=== PATIENT | male | born 1980 | race African-American/Black ===

== ENCOUNTER 2021-02-16 20:20 | Inpatient (IN) | payer MEDICARE, OTHER ==
[~2021-02-16] VITALS: Ht 162.6 cm; Wt 57.8 kg
[~2021-02-16 20:20] MED LIST: AMLO-257 PO; ATOR40TA71 PO; BUME2TAB5 PO; CARV12.530 PO; CARV25TA32 PO; CHOL500013 PO; CHOL500045 PO; CLON0.1T PO; CLON0.2T2 PO; ESCI20TA37 PO; FURO20TA4 PO; GABA-1181 PO; GLIP5TAB11 PO; HYDR-4174 PO; LINA5TAB PO; LISI-893 PO; LORA-1000 PO; METO-296 PO; METO5TAB7 PO; OMEP20CA12 PO; SUCR500T PO; TAMS-13 PO; TICA90TA PO
[2021-02-16] MEDS ORDERED: CALC-1038 PO (20:36)
[2021-02-16 20:45] LABS: GLUCOSE,POINT OF CARE 133 MG/DL (70-110)
[2021-02-16] MEDS ORDERED: ASPIRIN 81 MG CHEWABLE TABLET PO ONE ×2 (21:15→23:00)
[2021-02-16 21:21] LABS: BASOPHILS % (AUTO) 1.2 % (0.0-2.0); EOSINOPHILS % (AUTO) 2.2 % (1.0-6.0); HEMATOCRIT 33.8 % (41-53); HEMOGLOBIN 10.9 g/dL (13.5-17.5); LYMPHOCYTES # (AUTO) 0.9 K/uL (1.0-4.8); LYMPHOCYTES % (AUTO) 8.7 % (22.0-44.0); MEAN CORPUSCULAR HEMOGLOBIN 30.2 pg (26.0-34.0); MEAN CORPUSCULAR HGB CONC 32.1 G/dL (31.0-37.0); MEAN CORPUSCULAR VOLUME 94 fL (80-100); MONOCYTES # (AUTO) 0.8 K/uL (0.1-1.0); MONOCYTES % (AUTO) 7.6 % (2.0-9.0); NEUTROPHILS # (AUTO) 8.5 K/uL (1.8-7.7); NEUTROPHILS % (AUTO) 80.3 % (40.0-70.0); PLATELET COUNT (AUTO) 275 K/uL (150-450); RED CELL DISTRIBUTION WIDTH 18.8 % (11.5-14.5)
[2021-02-16 21:36] LABS: COVID AG,FIA SOURCE NASOPHARYNGEAL
[2021-02-16 22:32] LABS: INR 1.1 (0.9-1.1); PROTHROMBIN TIME 11.9 SEC (9.4-11.6)
[2021-02-16 22:37] LABS: ALBUMIN 3.1 g/dL (3.4-5.0); BILIRUBIN,TOTAL 0.5 mg/dL (0.1-1.0); CALCIUM, TOTAL 7.7 mg/dL (8.8-10.5); CREATININE 4.81 mg/dL (0.60-1.30); POTASSIUM 3.9 mmol/L (3.5-5.1); TOTAL PROTEIN, SERUM 8.3 g/dL (6.4-8.2)
[2021-02-16] MEDS ORDERED: HEPARIN SODIUM,PORCINE 5,000 UNITS/ML VIAL IVP ONE (23:00)
[2021-02-16] MEDS ORDERED: HEPARIN SODIUM 25000 UNITS/D5W 250 ML IV PRN (23:00)
[2021-02-16] MEDS: CARVEDILOL 3.125 MG TABLET PO SCH ×2 (23:00→23:23)
[2021-02-16] MEDS ORDERED: ONDANSETRON HCL 4 MG/2 ML VIAL IVP PRN (23:00)
[2021-02-16] MEDS ORDERED: ACETAMINOPHEN 325 MG TABLET PO PRN (23:00)
[2021-02-16] MEDS ORDERED: HEPARIN SODIUM,PORCINE 5,000 UNITS/ML VIAL IVP PRN ×2 (23:00)
[2021-02-16] MEDS ORDERED: MORPHINE SULFATE 2 MG/ML SYRINGE IVP ONE (23:30)
[2021-02-17] VITALS (10 sets, daily range): BP systolic 118–163; BP diastolic 66–94
[2021-02-17] MEDS ORDERED: LORA-1000 PO (04:38)
[2021-02-17] MEDS ORDERED: INSLAN SQ (04:41)
[2021-02-17] MEDS ORDERED: INSU100V SQ (04:45)
[2021-02-17] MEDS ORDERED: HEPARIN SODIUM 25000 UNITS/D5W 250 ML IV PRN (05:30)
[2021-02-17] MEDS ORDERED: HEPARIN SODIUM,PORCINE 5,000 UNITS/ML VIAL IVP ONE (05:30)
[2021-02-17] MEDS ORDERED: HEPARIN SODIUM,PORCINE 5,000 UNITS/ML VIAL IVP PRN ×2 (05:30)
[2021-02-17] MEDS ORDERED: MORPHINE SULFATE 2 MG/ML SYRINGE IVP PRN (08:15)
[2021-02-17] MEDS: AmLODIPine BESYLATE 5 MG TABLET PO SCH (08:24)
[2021-02-17] MEDS: ASPIRIN 81 MG CHEWABLE TABLET PO SCH (08:24)
[2021-02-17] MEDS: CARVEDILOL 3.125 MG TABLET PO SCH (08:24)
[2021-02-17] MEDS: OMEPRAZOLE 20 MG CAPSULE PO SCH ×2 (08:24→21:41)
[2021-02-17] MEDS: ATORVASTATIN CALCIUM 40 MG TABLET PO SCH (08:24)
[2021-02-17 08:39] LABS: INR 1.1 (0.9-1.1)
[2021-02-17 08:55] LABS: BASOPHILS % (AUTO) 1.3 % (0.0-2.0); EOSINOPHILS % (AUTO) 3.3 % (1.0-6.0); LYMPHOCYTES # (AUTO) 0.9 K/uL (1.0-4.8); LYMPHOCYTES % (AUTO) 13.1 % (22.0-44.0); MEAN CORPUSCULAR HGB CONC 31.3 G/dL (31.0-37.0); MEAN CORPUSCULAR VOLUME 96 fL (80-100); MONOCYTES # (AUTO) 0.5 K/uL (0.1-1.0); MONOCYTES % (AUTO) 6.5 % (2.0-9.0); NEUTROPHILS # (AUTO) 5.4 K/uL (1.8-7.7); NEUTROPHILS % (AUTO) 75.8 % (40.0-70.0); PLATELET COUNT (AUTO) 204 K/uL (150-450); RED BLOOD CELL COUNT(AUTO) 3.66 MIL/uL (4.50-5.90); RED CELL DISTRIBUTION WIDTH 18.7 % (11.5-14.5)
[2021-02-17] MEDS ORDERED: TICAGRELOR 60 MG TABLET PO SCH (09:00)
[2021-02-17] MEDS ORDERED: DEXTROSE 50%-WATER 25 GM/50 ML SYRINGE IVP PRN (09:45)
[2021-02-17] MEDS ORDERED: INSULIN LISPRO 100 UNITS/ML SQ PRN (09:45)
[2021-02-17] MEDS ORDERED: NITROGLYCERIN 0.4 MG SUBLINGUAL TABLET #25 SL ONE (14:00)
[2021-02-17] MEDS ORDERED: BUMETANIDE 0.25 MG/ML 4 ML VIAL IVP ONE (15:00)
[2021-02-17] MEDS ORDERED: FUROSEMIDE 40 MG/4 ML VIAL IVP ONE (15:00)
[2021-02-17] MEDS ORDERED: METOPROLOL TARTRATE 5 MG/5 ML VIAL IVP ONE ×3 (15:00→20:00)
[2021-02-17] MEDS: CHOLECALCIFEROL (VIT D3) 5,000 [125 MCG] UNITS CAPSULE PO SCH (16:53)
[2021-02-17] MEDS: ESCITALOPRAM OXALATE 20 MG TABLET PO SCH (16:53)
[2021-02-17] MEDS: CALCIUM CARBONATE 500 MG TABLET PO SCH (16:53)
[2021-02-17] MEDS ORDERED: LIDOCAINE 1% 10 ML VIAL ID PRN (18:45)
[2021-02-17] MEDS ORDERED: NITROGLYCERIN 400 MCG/SUBLINGUAL SPRAY 4.9 GM BOTTLE SL PRN (18:45)
[2021-02-17] MEDS ORDERED: HYDROCODONE/ACETAMINOPHEN 5-325 MG TABLET PO PRN (19:00)
[2021-02-17] MEDS ORDERED: NITROGLYCERIN 0.4 MG SUBLINGUAL TABLET #25 SL STA (20:30)
[2021-02-17] MEDS: TICAGRELOR 90 MG TABLET PO SCH (21:41)
[2021-02-17] MEDS: CARVEDILOL 12.5 MG TABLET PO SCH (21:42)
[2021-02-17 22:03] LABS: GLUCOMETER DEV NAME(LOC) 5S.1; GLUCOSE,POINT OF CARE 138 MG/DL (70-110)
[2021-02-18 01:28] LABS: GLUCOMETER DEV NAME(LOC) 5N.1C; GLUCOSE,POINT OF CARE 88 MG/DL (70-110)
[2021-02-18 04:15] VITALS: BP 125/75
[2021-02-18 07:11] VITALS: BP 117/77
[2021-02-18] MEDS ORDERED: LANTHANUM CARBONATE 500 MG CHEW TABLET PO SCH (08:00)
[2021-02-18 08:03] LABS: BASOPHILS % (AUTO) 0.7 % (0.0-2.0); EOSINOPHILS % (AUTO) 0.3 % (1.0-6.0); HEMATOCRIT 34.9 % (41-53); HEMOGLOBIN 11.1 g/dL (13.5-17.5); LYMPHOCYTES # (AUTO) 0.7 K/uL (1.0-4.8); LYMPHOCYTES % (AUTO) 5.9 % (22.0-44.0); MEAN CORPUSCULAR HEMOGLOBIN 30.2 pg (26.0-34.0); MEAN CORPUSCULAR HGB CONC 31.7 G/dL (31.0-37.0); MEAN CORPUSCULAR VOLUME 95 fL (80-100); MONOCYTES # (AUTO) 0.6 K/uL (0.1-1.0); MONOCYTES % (AUTO) 4.6 % (2.0-9.0); NEUTROPHILS # (AUTO) 11.1 K/uL (1.8-7.7); PLATELET COUNT (AUTO) 194 K/uL (150-450); RED BLOOD CELL COUNT(AUTO) 3.67 MIL/uL (4.50-5.90); RED CELL DISTRIBUTION WIDTH 18.7 % (11.5-14.5)
[2021-02-18 08:06] LABS: NEUTROPHILS % (AUTO) 88.5 % (40.0-70.0)
[2021-02-18] MEDS: AmLODIPine BESYLATE 5 MG TABLET PO SCH (08:17)
[2021-02-18] MEDS: CARVEDILOL 12.5 MG TABLET PO SCH (08:17)
[2021-02-18] MEDS: ASPIRIN 81 MG CHEWABLE TABLET PO SCH (08:17)
[2021-02-18] MEDS: ATORVASTATIN CALCIUM 40 MG TABLET PO SCH (08:17)
[2021-02-18] MEDS: TICAGRELOR 90 MG TABLET PO SCH (08:17)
[2021-02-18] MEDS: OMEPRAZOLE 20 MG CAPSULE PO SCH (08:18)
[2021-02-18] MEDS: ESCITALOPRAM OXALATE 20 MG TABLET PO SCH (08:18)
[2021-02-18] MEDS: CALCIUM CARBONATE 500 MG TABLET PO SCH (08:19)
[2021-02-18] MEDS: CHOLECALCIFEROL (VIT D3) 5,000 [125 MCG] UNITS CAPSULE PO SCH (08:19)
[2021-02-18 08:22] LABS: ALBUMIN 3.1 g/dL (3.4-5.0); BILIRUBIN,TOTAL 0.6 mg/dL (0.1-1.0); CALCIUM, TOTAL 9.1 mg/dL (8.8-10.5); CHOL/HDL RATIO 2.5 (4.2-7.3); CREATININE 4.61 mg/dL (0.60-1.30); POTASSIUM 4.5 mmol/L (3.5-5.1)
[2021-02-18] MEDS ORDERED: ISOSORBIDE MONONITRATE 30 MG ER TABLET PO SCH (09:00)
[2021-02-18 11:31] VITALS: BP 100/59
[2021-02-18 12:22] LABS: GLUCOMETER DEV NAME(LOC) 5S.1; GLUCOSE,POINT OF CARE 149 MG/DL (70-110)
[2021-02-18] MEDS ORDERED: LANT500T7 PO ×2 (13:01→13:02)
[2021-02-18] MEDS ORDERED: ISOS30TA92 PO (13:04)
[2021-02-18] MEDS ORDERED: CARV12 PO (13:06)
[2021-02-18 19:47] LABS: GLUCOMETER DEV NAME(LOC) 5N.1C; GLUCOSE,POINT OF CARE 149 MG/DL (70-110)
== END 2021-02-18 15:05 | disposition home or self-care (01) | DRG 246 ==
LOC: EMS 20:29 → AHU 02-17 13:05 → 5S 02-17 13:54
PROVIDERS: ADMIT Internal Medicine; ATTEND Internal Medicine
PROC: 027034Z Dilation of Coronary Artery, One Artery with Drug-eluting Intraluminal Device, Percutaneous Approach (ICD-10-PCS; principal; 2021-02-17)
PROC: B240ZZ3 Ultrasonography of Single Coronary Artery, Intravascular (ICD-10-PCS; 2021-02-17)
PROC: 5A1D70Z Performance of Urinary Filtration, Intermittent, Less than 6 Hours Per Day (ICD-10-PCS; 2021-02-17)
PROC: 4A023N7 Measurement of Cardiac Sampling and Pressure, Left Heart, Percutaneous Approach (ICD-10-PCS; 2021-02-17)
PROC: B2111ZZ Fluoroscopy of Multiple Coronary Arteries using Low Osmolar Contrast (ICD-10-PCS; 2021-02-17)
DX: I25.110 Atherosclerotic heart disease of native coronary artery with unstable angina pectoris (principal); N18.6 End stage renal disease; N25.81 Secondary hyperparathyroidism of renal origin; E11.52 Type 2 diabetes mellitus with diabetic peripheral angiopathy with gangrene; I12.0 Hypertensive chronic kidney disease with stage 5 chronic kidney disease or end stage renal disease; D63.1 Anemia in chronic kidney disease; E11.22 Type 2 diabetes mellitus with diabetic chronic kidney disease; Z20.822 Contact with and (suspected) exposure to COVID-19; E78.5 Hyperlipidemia, unspecified; E66.9 Obesity, unspecified; E11.65 Type 2 diabetes mellitus with hyperglycemia; Z79.02 Long term (current) use of antithrombotics/antiplatelets; Z79.4 Long term (current) use of insulin; Z99.2 Dependence on renal dialysis; I25.2 Old myocardial infarction; Z68.21 Body mass index [BMI] 21.0-21.9, adult
CPT/HCPCS: 71045; 75960; 80053; 80061; 82962; 83036; 84484; 85025; 85610; 85730; 87081; 87340; 90935; 92920; 92928; 93005; 93306; 99285; J1644; J2270; J3490; 36415-L1; 36415-TC

== ENCOUNTER → 2021-02-17 | Day surgery (SDC) | payer MEDICARE, OTHER ==
[~2021-02-17] MED LIST changes: +ASPIRIN 325 MG TABLET PO ONE; -BUME2TAB5 PO; +BUMETANIDE 0.25 MG/ML 10 ML VIAL IVP ONE; +CALC-1038 PO; +CARV12 PO; -CARV12.530 PO; -CHOL500045 PO; -CLON0.1T PO; +FUROSEMIDE 40 MG/4 ML VIAL IVP ONE; +FUROSEMIDE 40 MG/4 ML VIAL ONE; +FentaNYL CITRATE PF 100 MCG/2 ML VIAL IVP ONE; +FentaNYL CITRATE PF 100 MCG/2 ML VIAL ONE; -GLIP5TAB11 PO; +HEPARIN SODIUM 1000 UNITS/NS 1,000 ML IARTER ONE; +HEPARIN SODIUM 1000 UNITS/NS 1,000 ML ONE; +HEPARIN SODIUM,PORCINE 5,000 UNITS/ML VIAL IVP ONE; +INSLAN SQ; +INSU100V SQ; +IOHEXOL 300 MG/ML 100 ML VIAL ONE; +IOHEXOL 300 MG/ML 150 ML VIAL IARTER ONE; +IOHEXOL 300 MG/ML 150 ML VIAL ONE; +IOHEXOL 300 MG/ML 50 ML VIAL IARTER ONE; +IOHEXOL 300 MG/ML 50 ML VIAL ONE; +ISOS30TA92 PO; +LANT500T7 PO; +LIDOCAINE 1% 30 ML/SOD BICARB 8.4% 4 ML SQ ONE; +LIDOCAINE/PF 1% 30 ML VIAL ONE; -LISI-893 PO; -METO-296 PO; -METO5TAB7 PO; +MIDAZOLAM HCL 2 MG/2 ML VIAL IVP ONE; +MIDAZOLAM HCL 2 MG/2 ML VIAL ONE; +NITROGLYCERIN 400 MCG/SUBLINGUAL SPRAY 4.9 GM BOTTLE SL ONE; +SODIUM BICARBONATE 50 MEQ/50 ML VIAL ONE; +SODIUM CHLORIDE 0.9% 1,000 ML IV ONE; +TICAGRELOR 90 MG TABLET ONE; +TICAGRELOR 90 MG TABLET PO ONE
[2021-02-17 11:44] VITALS: BP 140/72
[2021-02-17 12:44] VITALS: BP 119/54
== END | disposition home or self-care (01) ==
LOC: CATHLAB 05:00
PROVIDERS: ATTEND Specialist
DX: R94.39 Abnormal result of other cardiovascular function study (principal); Z53.8 Procedure and treatment not carried out for other reasons
CPT/HCPCS: J1644; J1940; J2250; J3010; J3490 ×3; Q9967 ×3